=== PATIENT | female | born 1995 | race Caucasian/White ===

== ENCOUNTER → 2024-06-23 13:41 | Outpatient (REF) | payer OTHER, SELFPAY | LOC: HWCARD 13:41 | DX: F33.0 Major depressive disorder, recurrent, mild (principal); F90.0 Attention-deficit hyperactivity disorder, predominantly inattentive type; D51.9 Vitamin B12 deficiency anemia, unspecified; Z79.899 Other long term (current) drug therapy | CPT/HCPCS: 93005 ==